=== PATIENT | male | born 1950 | race Caucasian/White ===

== ENCOUNTER 2018-09-02 11:19 | Day surgery (SDC) | payer MEDICARE, BC, MEDICAID ==
[2018-09-02] VITALS (11 sets, daily range): BP systolic 102–139; BP diastolic 65–78
[~2018-09-02] VITALS: Ht 162.6 cm; Wt 77.4 kg
[~2018-09-02 11:19] MED LIST: ATOR10TA87 PO; COR3.125T PO; IMD30T PO; PARO30TA4 PO; ZES10T PO
[2018-09-02] MEDS ORDERED: normal saline 1,000 ML IV SCH (11:55)
[2018-09-02] MEDS ORDERED: LORazepam 0.5 MG tablet PO PRN (11:55)
[2018-09-02] MEDS ORDERED: diphenhydrAMINE 25mg capsule PO PRN (11:55)
[2018-09-02] MEDS ORDERED: CARV3.122 PO (12:17)
[2018-09-02] MEDS ORDERED: MULT-955 PO (12:17)
[2018-09-02] MEDS ORDERED: BUSP10TA11 PO (12:17)
[2018-09-02] MEDS ORDERED: MIRT15TA PO (12:17)
[2018-09-02] MEDS ORDERED: NITR0.4T51 SL (12:17)
[2018-09-02] MEDS ORDERED: DULO20CA50 PO (12:17)
[2018-09-02] MEDS ORDERED: ASPI81TA52 PO (12:17)
[2018-09-02] MEDS ORDERED: ATOR10TA87 PO (12:17)
[2018-09-02] MEDS ORDERED: midazolam 2 mg/2 ml injection ONE (14:14)
[2018-09-02] MEDS ORDERED: fentaNYL/PF 50MCG/1 ML 2ML syringe ONE (14:15)
[2018-09-02] MEDS ORDERED: LIDOcaine 1% (10mg/ml)w/preservative injection 20ml MDV ONE (14:15)
[2018-09-02] MEDS ORDERED: iohexol 350MG/ML 100ml bottle IV ONE (14:15)
[2018-09-02] MEDS ORDERED: OXAZEpam 15mg capsule PO PRN (16:05)
[2018-09-02] MEDS ORDERED: HYDROcodone/acetaminophen 10/325mg tab PO PRN (16:05)
[2018-09-02] MEDS ORDERED: HYDROcodone/acetaminophen 5mg/325mg tablet PO PRN (16:05)
[2018-09-02] MEDS ORDERED: ondansetron/PF 4mg/2ml inj IV PRN (16:05)
[2018-09-02] MEDS ORDERED: proCHLORperazine 10 MG/2 ml inj IV PRN (16:05)
== END 2018-09-02 19:55 | disposition home or self-care (01) ==
LOC: SSTAY O 11:19
PROVIDERS: ATTEND Internal Medicine Interventional Cardiology
DX: I25.110 Atherosclerotic heart disease of native coronary artery with unstable angina pectoris (principal); I10 Essential (primary) hypertension; E78.5 Hyperlipidemia, unspecified; Z87.891 Personal history of nicotine dependence; Z98.2 Presence of cerebrospinal fluid drainage device; Z79.899 Other long term (current) drug therapy
CPT/HCPCS: 93005; 93458; 99152; A6257; C1769; J1644; J2001; J2250; J3010; J7030; Q0163; Q9967; A4620

== ENCOUNTER 2024-03-30 11:02 | Outpatient (CLI) | payer MEDICARE, MEDICAID ==
[~2024-03-30 11:02] MED LIST changes: +ASPI81TA52 PO; -ATOR10TA87 PO; +BUSP15TA7 PO; +CHOL500050 PO; +CLOP-32 PO; -COR3.125T PO; +DULO20CA50 PO; -IMD30T PO; +MIRT-142 PO; +MULT-955 PO; +MYCO500T5 PO; +NITR0.4T51 SL; +OXYGEN NASALCANN; -PARO30TA4 PO; -ZES10T PO
== END 2024-03-30 23:59 | disposition home or self-care (01) ==
LOC: RAD 11:02
PROVIDERS: ATTEND Nurse Practitioner Family
DX: J90 Pleural effusion, not elsewhere classified (principal); J70.3 Chronic drug-induced interstitial lung disorders; J98.6 Disorders of diaphragm; R09.02 Hypoxemia; I51.7 Cardiomegaly; I50.9 Heart failure, unspecified
CPT/HCPCS: 71046